=== PATIENT | male | born 1955 | race African-American/Black ===

== ENCOUNTER 2017-05-09 22:39 | Observation (INO) | payer OTHER ==
[~2017-05-09] VITALS: Ht 182.9 cm; Wt 81.6 kg
--- NOTE | ~2017-05-09 | DS ---
Unit #: [id number] #: [id number] Patient: HIMANSHU NGUYEN [id number] [address] [address] [id number] I MR#: [id number] NAME: HIMANSHU NGUYEN ROOM: 339 Age: 61 Sex: M Admission Date: 05/10/2017 : 1955 Discharge Date: 05/11/2017 Attending Physician: J Carlos Marquez M.D. Primary Care Physician: No Primary Care Physician DISCHARGE SUMMARY PRIMARY DIAGNOSIS Altered mental status, secondary to polysubstance overdose related to suicide attempt. SECONDARY DIAGNOSES 1. Alcohol intoxication. 2. Situational depression. 3. Possible gastritis related to alcohol. HOSPITAL COURSE The patient was placed in the hospital. He was noted to have a markedly elevated alcohol level and was treated symptomatically for this. The patient reports to me that he pulled several old medications out of his medication cabinet and took about 60 tablets and took those with beer and a large amount of hard liquor in an attempt to kill himself as a child that he has in [facility] was recently thrown into fci. He was seen here by psychiatry and clinically improved during the time of his hospitalization. He no longer reports any suicide ideality and plans to maintain sobriety from alcohol. I discussed the case with Dr. Melara prior to writing the discharge orders and patient is felt to be stable for discharge. He will be planned to follow up with Our outpatient as well as with his primary care physician at [facility]. DISCHARGE DISPOSITION To home. DISCHARGE STATUS Stable. DISCHARGE ACTIVITY Ad fozia. DISCHARGE DIET Unrestricted. DISCHARGE MEDICATIONS 1. Omeprazole 40 mg p.o. once daily as a therapeutic trial for some epigastric pain. 2. Ibuprofen 400 mg p.o. q.6 hours p.r.n. pain. FOLLOWUP Discharge followup will be with Our both for his situational depression and for his alcohol abuse in one to three days. He should follow up with [facility] which is his regular PCP in one to two weeks Unit #: [id number] #: [id number] Patient: HIMANSHU NGUYEN for continued followup on his abdominal pain. Dictated by... Gary Atikns TD: 05/13/2017 09:39 JOB #: [id number] DISCHARGE SUMMARY Page 1 of 1 X J Carlos Marquez MD X DISCHARGE SUMMARY
--- NOTE | ~2017-05-09 | CT71 ---
[facility] A Service of [facility] RADIOLOGY TEXT RESULTS PATIENT: HIMANSHU NGUYEN LOCATION: [facility] 339-01 : 59 UNIT #: [id number] AGE: [address]: Katie Guaman MD SEX: M ORDER DR: [id number] [facility] [address] [facility] [place] [facility]. [place], [place] [address] [id number] I MR#: [id number] #: [id number] NAME: HIMANSHU NGUYEN : 1955 SEX: M STUDY DATE/TIME: 05/10/2017 5:33 UNIT: [address] ROOM: [facility] STUDY DESCRIPTION: CT Head Wo Contrast Attending Physician: Katie Guaman M.D. Ordering Physician: Arnoldo Flynn M.D. Primary Care Physician: Primary Care Physician No MEDICAL IMAGING REPORT This report is preliminary unless electronic signature is present EXAM CT head, noncontrast, 05/10/2017 HISTORY 61-year-old male in the ED with decreased mental status, lethargy. Combative. Ethanol intoxication and possible over medication are noted. TECHNIQUE CT examination of the head without IV contrast. This CT exam was performed with one or more of the following radiation dose reduction techniques: automatic exposure control, adjustment of mA and/or kV according to patient size, and iterative reconstruction. FINDINGS The examination is negative. No evidence of intracranial hemorrhage, mass, mass effect, cerebral edema, hydrocephalus or additional abnormality. IMPRESSION Negative head CT examination. Dictated by... Babatunde Yepez M.D. THIS IS AN ELECTRONICALLY VERIFIED REPORT Babatunde Yepez M.D. at 05/10/2017 9:53 PM Agata TD: 05/10/2017 10:17 JOB #: [id number] MEDICAL IMAGING REPORT Page 1 of 1 COPY
--- NOTE | ~2017-05-09 | HP ---
Unit #: [id number] #: [id number] Patient: HIMANSHU NGUYEN [id number] [address] [place], [place] [address] [id number] I MR#: [id number] NAME: HIMANSHU NGUYEN ROOM: 339 Age: 61 Sex: M Admission Date: 05/10/2017 : 1955 Attending Physician: Katie Guaman M.D. Primary Care Physician: No Primary Care Physician HISTORY AND PHYSICAL CHIEF COMPLAINT Altered mental status. HISTORY OF PRESENT ILLNESS The patient is a 61-year-old male from [facility]. He moved here from [place]. He speaks Serbian. The patient is completely uncooperative at this time, and history is essentially from the ER physicians, as well as his son. The patient is uncooperative. Reports indicate the patient drank about 10 ounces of whiskey with Heineken, as well as some unknown medication. The exact number is undetermined. He has been seen and evaluated in the emergency room. He is very combative, able to protect his airway. Tylenol level at presentation and (1) were nontoxic. His sensorium has improved; however, the patient does not want to be disturbed at this time. PAST MEDICAL HISTORY Past medical history is unknown at this time. His son suggested some history of maybe liver disease. PAST SURGICAL HISTORY Unobtainable secondary to the patient's lack of cooperation. ALLERGIES Allergic history is unobtainable at this time secondary to the patient's lack of cooperation. REVIEW OF SYSTEMS Unobtainable secondary to the patient being uncooperative. SOCIAL HISTORY The patient is . Has about 6 children. He smokes, drinks. There is no history of recreational drugs use. PHYSICAL EXAMINATION GENERAL: He was comfortable. Sleeping. Arousable. Combative. Noncooperative. VITAL SIGNS: Temperature was 96.8, pulse 86, respiratory rate 15, blood pressure 97/51, saturating 99% on room air. CHEST: The areas that I could listen to were mostly clear. CARDIOVASCULAR: First and second heart sounds only. ABDOMEN: Exam was limited secondary to the patient being curled up in a position and not cooperative. 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 On attempts to perform a central nervous system exam, he pulled the covers back on in a very forceful manner. He seemed to move all his limbs spontaneously. SKIN: Warm and dry with no rashes in the areas exposed that I could see. PSYCHIATRIC ASSESSMENT: Unable to assess secondary to the patient's lack of cooperation. DIAGNOSTIC DATA LABORATORY: He had an alcohol level of 166. Chemistry - Glucose of 166, BUN and creatinine 9 and 0.9, sodium and potassium 137 and 3.5, chloride and bicarb 102 and 20 respectively with calcium level of 8.1. Bili total was 3.1, AST and ALT 27 and 26 respectively with an alkaline phosphatase of 62. CBC - WBC 7.7, hemoglobin and hematocrit 15.1 and 43.8, platelet count of 222. Urine tox was negative. ASSESSMENT AND PLAN 1. Altered mental status probably secondary to alcohol intoxication in conjunction with some possible medication. He had an IV, which he ripped out of his arm. As such, we will make attempts to put in an IV without any fluids to avoid further injury. 2. Possible drug overdose. The intention at this point really is unknown. One is unable to assess to see if this was intentional or what exactly he took. Hopefully we will be able to reassess some more when he is more lucid or when the alcohol effects have worn out. 3. Possible liver problems. (2) suggests this at this time especially as his AST and ALT seem to be normal. 4. DVT prophylaxis. Will attempt to put on SCDs while he in bed. 5. GI prophylaxis. Will attempt to give him Protonix if he accepts this. Will put him on telemetry and set him up with a one-to-one sitter. Dictated by Gary Peters TD: 05/10/2017 11:56 JOB #: [id number] HISTORY AND PHYSICAL Page 1 of 1 X Katie Guaman MD X HISTORY AND PHYSICAL
--- NOTE | ~2017-05-09 | CO ---
Unit #: [id number] #: [id number] Patient: HIMANSHU NGUYEN [id number] [facility] [address]. [place], [place] [address] [id number] I MR#: [id number] NAME: HIMANSHU NGUYEN ROOM: 339 Age: 61 Sex: M Admission Date: 05/10/2017 : 1955 Attending Physician: J Carlos Marquez M.D. Primary Care Physician: Primary Care Physician No Consultation Date: 05/11/2017 CONSULTATION REPORT REASON FOR CONSULTATION Followup. DISCUSSION Mr. Talavera is a 61-year-old male from [facility], seen on 05/11/2017, in room 339, bed 1, at [facility] The patient was admitted with the alcohol intoxication, confusion. Reports feeling better. The patient was interviewed with the help of repairer veneer sheet. The patient has a family at the bedside. Reports feeling better. The patient's WBC is 6.9, hemoglobin 14.7. The patient's sodium is 133, potassium 3.8. The patient denied any complaint. Denied any thoughts of harming self or others. Reports feeling better. The patient's vital signs; temperature 98.0, pulse 68, respirations 16, blood pressure 134/78, and oxygen saturation 100%. REVIEW OF SYSTEMS Complete review of systems is unremarkable. MENTAL STATUS EXAMINATION General appearance, the patient dressed casually in hospital attire, lying comfortably in bed. Attention span and concentration, fair. Speech, regular rate and coherent. Oriented in time, place, and person. Mood and affect, sad and dysphoric. Thought process, coherent. Thought content, the patient denied any thoughts of harming self or others or any psychotic symptom. Recent and remote memory, fair. Language, intact. Fund of knowledge, fair. Insight and judgment, fair to slightly impaired. DIAGNOSES Psychiatric: Alcohol use disorder, severe, F10.20; major depressive disorder, recurrent, severe, F33.2. ASSESSMENT AND PLAN 1. Supportive psychotherapy and psychoeducation provided to the patient. 2. Educated about benefits and side effects of medication and course and prognosis of illness. 3. Advised to continue with current treatment and consider medication if needed. The patient to follow up in outpatient program upon discharge. The patient was given information about [facility] program of [facility], but because of language barrier, the patient may not be able to attend. Dictated by... Chilango Melara M.D. Unit #: [id number] #: [id number] Patient: HIMANSHU NGUYEN JERSON/modl TD: 05/12/2017 16:15 JOB #: [id number] CONSULTATION REPORT Page 1 of 1 X Chilango Melara MD X CONSULTATION REPORT
--- NOTE | ~2017-05-09 | CO ---
Unit #: [id number] #: [id number] Patient: HIMANSHU MEDRANO [id number] [address] [place], [place] [address] [id number] I MR#: [id number] NAME: HIMANSHU MEDRANO ROOM: 339 Age: 61 Sex: M Admission Date: 05/10/2017 : 1955 Attending Physician: J Carlos Marquez M.D. Primary Care Physician: Primary Care Physician No Consultation Date: 05/10/2017 CONSULTATION REPORT REASON FOR CONSULTATION Confusion, altered mental status, aggression, alcohol abuse. HISTORY OF PRESENT ILLNESS Mr. Medrano is a 61-year-old male from [facility]. 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 The patient is pleasant and cooperative, able to answer questions appropriately. The patient denied any use of any drugs or alcohol, but later admitted to drinking. The patient has a history of drinking, but the patient was clean and recently relapsed. The patient was admitted with altered mental status. The patient drank about 10 ounces of whiskey with Heineken with some unknown medication. The patient was admitted in delirious state and pulled his IV multiple times. The patient family was at the bedside. The patient currently denied any thoughts of harming self or others. Denied any psychotic symptom. The patient's vital signs; temperature 97.6, heart rate 88, respiratory rate 18, blood pressure 132/78, and oxygen saturation 100%. MEDICAL HISTORY Unknown for any history of any medical condition except glucose 166, total bilirubin 3.1, direct bilirubin 3.0, AST and ALT within normal range. Alcohol level was 166 upon admission. CURRENT MEDICATIONS None. Currently, on [facility] protocol. FAMILY HISTORY AND SOCIAL HISTORY The patient has a good support system. , has 7 children, recently moved 3 years ago from [facility]. REVIEW OF SYSTEMS Complete review of systems is unremarkable. MENTAL STATUS EXAMINATION The patient's vital signs, please see above. General appearance; the patient dressed in hospital attire, lying comfortably in bed, made good eye contact. Attention span and concentration, fair. Speech, regular rate and coherent. Oriented in place and person. Mood and affect were labile. Thought process, coherent. Thought content, the patient denied any thoughts of harming self or others or any hallucination. Recent and remote memory, fair. Language, intact. Fund of knowledge, fair. Insight and judgment, fair to slightly impaired. DIAGNOSES Unit #: [id number] #: [id number] Patient: HIMANSHU MEDRANO Psychiatric: Alcohol use disorder, severe, F10.20; delirium, F05, resolved. Secondary diagnosis: Deferred. Medical diagnosis: Please refer to H and P. Stressors: Psychosocial stressors. ASSESSMENT/PLAN 1. Supportive psychotherapy and psychoeducation provided to the patient. 2. Educated about benefits and side effects of medication and course and prognosis of illness. 3. Advised to continue with current treatment and advised to follow up in outpatient program. Please feel free to call if any question, telephone #[phone]. Dictated by... Gary Guevara/hermila TD: 05/11/2017 01:47 JOB #: [id number] CONSULTATION REPORT Page 1 of 1 X Chilango Melara MD X CONSULTATION REPORT
--- NOTE | ~2017-05-09 | EKG ---
PATIENT: HIMANSHU NGUYEN UNIT #: [id number] Ventricular Rate: 87 BPM Atrial Rate: 87 BPM P-R Interval: 162 ms QRS Duration: 90 ms Q-T Interval: 366 ms QTC Calculation(Bezet): 440 ms P Shelby: 76 degrees Calculated R Shelby: 19 degrees Calculated T Shelby: -60 degrees Diagnosis Line: Normal sinus rhythm Diagnosis Line: Abnormal QRS-T angle, consider primary T wave Diagnosis Line: abnormality Diagnosis Line: Abnormal ECG Diagnosis Line: No previous ECGs available Diagnosis Line: Confirmed by CHADWICK CARLSON MD ([id number]) on 05/10/2017 Diagnosis Line: 6:00:34 PM INTERPRETING MD: ALDO LOUISE
[2017-05-10] LABS: BASOPHIL% 0.3 % (0-2.5); DIFF IND NO; EOSINOPHIL% 0.1 % (0.0-7.0); HEMATOCRIT 43.8 % (38.0-50.0); HEMOGLOBIN 15.1 gm/dL (13.0-16.0); LYMPHOCYTE# 1.5 X10e3 (1.0-3.5); LYMPHOCYTE% 19.6 % (17.0-45.0); MEAN CELL VOLUME 100.8 FL (83-96); MEAN CORPUSCULAR HEMOGLOBIN 34.6 PG (28-34); MEAN CORPUSCULAR HGB CONC 34.4 g/dL (30-36); MEAN PLATELET VOLUME 7.1 FL (6.5-11.5); MONOCYTE# 0.7 X10e3 (0-1.0); MONOCYTE% 9.2 % (3.0-12.0); NEUTROPHIL# 5.5 X10e3 (1.5-7.1); NEUTROPHIL% 70.8 % (40-75); PLATELET COUNT 222 X10e3 (140-420); RED BLOOD COUNT 4.35 X10e (3.90-5.60); RED CELL DISTRIBUTION WIDTH 12.7 % (11.0-15.5); WHITE BLOOD COUNT 7.7 X10e3 (4.0-10.5)
[2017-05-10 00:24] LABS: ACETAMINOPHEN 38 ug/mL; ALKALINE PHOSPHATASE 62 U/L (32-92); ALT (SGPT) 26 U/L (10-40); AST (SGOT) 27 U/L (10-42); BILIRUBIN, DIRECT 0.1 mg/dL (0.0-0.2); BILIRUBIN,TOTAL 3.1 mg/dL (0.2-2.0); BLOOD UREA NITROGEN 9 mg/dL (9-23); CALCIUM SERUM 8.1 mg/dL (8.4-10.2); CARBON DIOXIDE 20 mmol/L (22-31); CHLORIDE 102 mmol/L (100-111); CREATININE SERUM 0.9 mg/dL (0.6-1.4); GLUCOSE FASTING 166 mg/dL (70-110); POTASSIUM 3.5 mmol/L (3.5-5.1); PROTEIN TOTAL SERUM 6.9 g/dL (6.0-8.3); SALICYLATE <4.0 mg/dL; SODIUM 137 mmol/L (135-145)
[2017-05-10 00:25] LABS: ALCOHOL BLOOD 166 mg/dL (0)
[2017-05-10 03:56] LABS: AMPHETAMINE NEG (NEG); BARBITURATES NEG (NEG); BENZODIAZEPINES NEG (NEG); COCAINE NEG (NEG); MARIJUANA NEG (NEG); OPIATES NEG (NEG); TRICYCLIC ANTIDEPRESSANTS NEG (NEG); U METHADONE NEG (NEG)
[2017-05-11 08:55] LABS: HEMATOCRIT 43.4 % (38.0-50.0); HEMOGLOBIN 14.7 gm/dL (13.0-16.0); MEAN CORPUSCULAR HEMOGLOBIN 34.2 PG (28-34); MEAN CORPUSCULAR HGB CONC 33.9 g/dL (30-36); MEAN PLATELET VOLUME 7.3 FL (6.5-11.5); RED BLOOD COUNT 4.3 X10e (3.90-5.60); RED CELL DISTRIBUTION WIDTH 12.9 % (11.0-15.5); WHITE BLOOD COUNT 6.9 X10e3 (4.0-10.5)
[2017-05-11 09:25] LABS: BUN/CREATININE RATIO 18.88; CALCIUM SERUM 8.3 mg/dL (8.4-10.2); CREATININE SERUM 0.9 mg/dL (0.6-1.4); POTASSIUM 3.8 mmol/L (3.5-5.1)
[2017-05-11] MEDS ORDERED: OMEPRAZOLE40 M1 PO (17:46)
[2017-05-11] MEDS ORDERED: IBUPROFEN400 MG PO (17:47)
== END 2017-05-11 18:28 | disposition home or self-care (01) ==
LOC: CED 22:39 → C3A PCU 05-10 06:25 → CEDOF 05-10 06:25 → CED 05-10 06:31 → CEDOF 05-10 06:31 → C3A PCU 05-10 08:33 → CEDOF 05-10 08:33 → C3A PCU 05-10 08:33
PROVIDERS: Emergency Medicine; Family Medicine
DX: T50.902A Poisoning by unspecified drugs, medicaments and biological substances, intentional self-harm, initial encounter (principal); F10.129 Alcohol abuse with intoxication, unspecified; F43.21 Adjustment disorder with depressed mood; F17.200 Nicotine dependence, unspecified, uncomplicated
CPT/HCPCS: 36415; 51701; 70450; 80048; 80076; 80307; 85025; 85027; 93005; 96361; 96372; 96374; 96375; 99285; G0378; G0480; J2310; J2405; J3486